=== PATIENT | female | born 2000 | race Caucasian/White ===

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

== ENCOUNTER 2021-05-29 23:06 | Emergency (ER) | payer OTHER ==
[~2021-05-29] VITALS: Ht 172.7 cm; Wt 84.5 kg
--- NOTE | 2021-05-30 03:05 | NUR ---
PT C/O RT BACK LEG PAIN SINCE TWO WEEKS AGO WHICH HAS GOTTEN WORSE TODAYS. STATES SHE HURT IT AT WORK. PT REPORTS THAT SHE MIGHT HAVE STRAINED THE MUSCLE OR TENDON. ATTACHED TO MONITORS. VSS. NADN. SPRING AT BEDSIDE. WORSE WHILE WALKING AND BENDING OVER. TAKEN IBUPROFEN. WCTM
[2021-05-30 03:08] VITALS: BP_DIAS 88
[2021-05-30] MEDS ORDERED: LIDODERM 5% PATCH TD ONE ×2 (03:30→03:32)
[2021-05-30] MEDS ORDERED: DIAZEPAM 5 MG TABLET PO ONE (03:30)
[2021-05-30] MEDS ORDERED: KETOROLAC 30 MG/1 ML IM ONE (03:30)
[2021-05-30] MEDS ORDERED: DIAZEPAM 5 MG TABLET ONE (03:32)
[2021-05-30] MEDS ORDERED: KETOROLAC 30 MG/1 ML ONE (03:32)
[2021-05-30 04:18] VITALS: BP_SYST 152
--- NOTE | 2021-05-30 04:33 | NUR ---
Patient/Caregiver given discharge instructions and they have confirmed that they understand the instructions. Patient ambulatory with steady gait. NAD, all questions answered appropriately, denies additional needs at this time. No personal belongings left in room after discharge. PT EDUCATED NOT TO USE HEAVY MACHINERY OR DRIVE DUE TO THE MEDICATIONS. PT FIANCE DRIVING PT HOME.
== END 2021-05-30 04:35 | disposition home or self-care (01) ==
LOC: ED 23:30
DX: S76.811A Strain of other specified muscles, fascia and tendons at thigh level, right thigh, initial encounter (principal); E03.9 Hypothyroidism, unspecified; Z90.89 Acquired absence of other organs; X58.XXXA Exposure to other specified factors, initial encounter; Y93.89 Activity, other specified; Y92.69 Other specified industrial and construction area as the place of occurrence of the external cause; Y99.0 Civilian activity done for income or pay
CPT/HCPCS: 96372; 99283; J1885